=== PATIENT | female | born 1995 | race Caucasian/White ===

== ENCOUNTER 2017-03-09 08:19 | Emergency (ER) | payer OTHER ==
[~2017-03-09] VITALS: Ht 162.6 cm; Wt 72.5 kg
[~2017-03-09 08:19] MED LIST: ACET325T33 PO; NITR-58 PO; PREN-39 PO
[2017-03-09 08:21] VITALS: Ht 162.6 cm; Wt 72.5 kg
[2017-03-09 09:38] LABS: ADD UMIC YES; UR BILIRUBIN (Dip) NEGATIVE (NEGATIVE); UR BLOOD (Dip) 3+ (NEGATIVE); UR CLARITY CLEAR (CLEAR); UR COLOR YELLOW (YELLOW); UR GLUCOSE (Dip) NEGATIVE (NEGATIVE); UR KETONES (Dip) NEGATIVE (NEGATIVE); UR LEUKOCYTE ESTERASE (Dip) NEGATIVE (NEGATIVE); UR NITRITE (Dip) NEGATIVE (NEGATIVE); UR TOTAL PROTEIN (Dip) NEGATIVE (NEGATIVE); UR UROBILINOGEN (Dip) 0.2 E.U./dL (0.1-1.0)
[2017-03-09 09:52] LABS: UR SQUAMOUS EPITHELIAL CELL FEW
[2017-03-09 09:53] LABS: UR MUCUS FEW
[2017-03-09] MEDS ORDERED: ACET500C5 PO (10:29)
[2017-03-09 10:40] VITALS: BP 121/65; PULSE 77; RESP 18
--- NOTE | 2017-03-09 16:57 | ERD ---
ER Documentation Chief Complaint Date/Time DATE: 03/09/17 TIME: 16:53 Chief Complaint BACK PAIN , HX OF UTI HPI 21-year-old female patient with no significant past medical history presents to the ED complaining of bilateral flank pain that started 3 days ago. Reports that she is concerned about her kidneys. Reports that she does get recurrent urinary tract infections. States that her menses is irregular. Reports that she is not sexually active. Denies any dysuria, urgency, frequency, hematuria. Denies any abdominal pain, nausea, vomiting, chest pain, shortness of breath. ROS All systems reviewed and are negative except as per history of present illness. Medications Home Meds Active Scripts Acetaminophen* (Tylophen*) 500 Mg Capsule, 1 CAP PO Q6H Y for PAIN AND OR ELEVATED TEMP, #20 CAP Prov:MICHELLE BELTRAN PA-C 03/09/17 Acetaminophen* (Tylenol*) 325 Mg Tablet, 1 TAB PO Q6 Y for PAIN AND OR ELEVATED TEMP, #20 TAB Prov:SHUN TINEO NP 04/05/16 Nitrofurantoin Monohyd Macrocr* (Macrobid*) 100 Mg Capsr, 100 MG PO BID for 7 Days, CAP Prov:SHUN TINEO. FIRM ADMINISTRATOR 04/05/16 Reported Medications Vits W-Ca,Fe,Fa(<1MG) ( Vitamins) 1 Tab Tablet, 1 TAB PO 10/01/14 Allergies Allergies: Coded Allergies: No Known Allergy (Verified , 03/09/17) PMhx/Soc History of Surgery: No Anesthesia Reaction: No Hx Neurological Disorder: No Hx Respiratory Disorders: No Hx Cardiac Disorders: No Hx Psychiatric Problems: No Hx Miscellaneous Medical Probl: No Hx Alcohol Use: No Hx Substance Use: No Hx Tobacco Use: No Smoking Status: Never smoker Physical Exam Vitals Vital Signs Date Time Temp Pulse Resp B/P Pulse Ox O2 Delivery O2 Flow Rate FiO2 03/09/17 08:06 98.2 147 22 113/75 100 Physical Exam Const: [id number], well-nourished. In no acute distress. Head: Atraumatic, normocephalic Eyes: Normal Conjunctiva without injection. No purulent discharge. ENT: Normal external ear, nose. Moist oropharynx without tonsillar exudates. Non -erythematous pharynx. Uvula midline. No drooling. No trismus. Neck: No cervical midline tenderness. Full range of motion. No meningismus. No cervical lymphadenopathy. No JVD. Resp: Clear to auscultation bilaterally. No wheezing, rhonchi, rales, or crackles. No accessory muscle use. No retractions. Cardio: Regular rate and rhythm. No murmurs, rubs or gallops. Abd: Soft, nontender non distended. Normal bowel sounds. No palpable masses. No rebound tenderness. No guarding. Negative McBurney's point. Negative psoas sign. Negative obturator sign. Skin: No petechiae or rashes Back: No midline tenderness. Slight bilateral CVA tenderness. No tenderness to palpation of the muscular structures. Ext: No cyanosis, or edema. Neur: Awake and alert. Normal gait. Normal coordination. Psych: Normal Mood and Affect Results 24 hrs Laboratory Tests Test 03/09/17 09:12 Urine Color YELLOW Urine Clarity CLEAR Urine pH 6.0 Urine Specific [place] >=1.030 Urine Ketones NEGATIVE Urine Nitrite NEGATIVE Urine Bilirubin NEGATIVE Urine Urobilinogen 0.2 E.U./dL Urine Leukocyte Esterase NEGATIVE Urine Microscopic RBC 2-5/HPF Urine Microscopic WBC NONE SEEN/HPF Urine Squamous Epithelial Cells FEW Urine Mucus FEW Urine Hemoglobin 3+ Urine Glucose NEGATIVE% Urine Total Protein NEGATIVE Procedures/MDM This is a 21-year-old female patient with no significant past medical history presents the ED complaining of bilateral flank pain. Patient is afebrile and nontoxic-appearing. Patient has normal vital signs. A urinalysis and urine was ordered to further evaluate patient. Urinalysis showed 3+ hematuria likely secondary to patient's menstruation since she just ended 2 days ago. Differentials also include nephrolithiasis. No leukocyte esterase, nitrites noted. There is low suspicion for septic renal stone, pyelonephritis, urinary tract infection, appendicitis, cholecystitis, cholangitis, choledocholithiasis, or other emergent conditions. Discharge medications: Tylenol Follow up with primary care physician in 1-2 days. Instructed patient to return to the ED sooner for any worsening symptoms. Patient's questions were answered. Patient understood and agreed with discharge plan. Patient discharged stable. Departure Diagnosis: Primary Impression: Pain, flank, bilateral Condition: Stable Patient Instructions: Flank Pain, Uncertain Cause Referrals: [facility] YOU HAVE RECEIVED A MEDICAL SCREENING EXAM AND THE RESULTS INDICATE THAT YOU DO NOT HAVE A CONDITION THAT REQUIRES URGENT TREATMENT IN THE EMERGENCY DEPARTMENT. FURTHER EVALUATION AND TREATMENT OF YOUR CONDITION CAN WAIT UNTIL YOU ARE SEEN IN YOUR DOCTORS OFFICE WITHIN THE NEXT 1-2 DAYS. IT IS YOUR RESPONSIBILITY TO MAKE AN APPOINTMENT FOR FOLOW-UP CARE. IF YOU HAVE A PRIMARY DOCTOR --you should call your primary doctor and schedule an appointment IF YOU DO NOT HAVE A PRIMARY DOCTOR YOU CAN CALL OUR PHYSICIAN REFERRAL HOTLINE AT IF YOU CAN NOT AFFORD TO SEE A PHYSICIAN YOU CAN CHOSE FROM THE FOLLOWING [facility] [address] [facility]. [facility] [address] [facility]. [facility] [address] [facility] [facility] [address] [facility] [address] [facility]. [facility] [address] [facility]. [facility] YOU HAVE RECEIVED A MEDICAL SCREENING EXAM AND THE RESULTS INDICATE THAT YOU DO NOT HAVE A CONDITION THAT REQUIRES URGENT TREATMENT IN THE EMERGENCY DEPARTMENT. FURTHER EVALUATION AND TREATMENT OF YOUR CONDITION CAN WAIT UNTIL YOU ARE SEEN IN YOUR DOCTORS OFFICE WITHIN THE NEXT 1-2 DAYS. IT IS YOUR RESPONSIBILITY TO MAKE AN APPOINTMENT FOR FOLOW-UP CARE. IF YOU HAVE A PRIMARY DOCTOR --you should call your primary doctor and schedule and appointment IF YOU DO NOT HAVE A PRIMARY DOCTOR YOU CAN CALL OUR PHYSICIAN REFERRAL HOTLINE AT . IF YOU CAN NOT AFFORD TO SEE A PHYSICIAN YOU CAN CHOSE FROM THE FOLLOWING [facility] INSTITUTIONS: [facility] [address] [place] [address] [facility] [address] [place] [address] [facility] + [facility] [address] [place] [address] [facility] URGENT CARE/SPECIALTIES Additional Instructions: Call your primary care doctor TOMORROW for an appointment during the next 2-3 days.See the doctor sooner or return here if your condition worsens before your appointment time. MICHELLE BELTRAN PA-C Mar 09, 2017 16:56 MICHELLE BELTRAN PA-C Mar 09, 2017 16:56
== END 2017-03-09 10:40 | disposition home or self-care (01) ==
LOC: FTE 08:19
DX: R10.9 Unspecified abdominal pain (principal)
CPT/HCPCS: 81001; 99283

== ENCOUNTER 2017-07-23 09:10 | Emergency (ER) | payer OTHER ==
[~2017-07-23] VITALS: Ht 165.1 cm; Wt 74.0 kg
[~2017-07-23 09:10] MED LIST changes: +ACET500C5 PO
[2017-07-23 09:12] VITALS: Ht 165.1 cm; Wt 74.0 kg
[2017-07-23] MEDS ORDERED: LEVO5TAB28 PO (09:51)
[2017-07-23] MEDS ORDERED: PRED20TA PO (09:51)
--- NOTE | 2017-07-23 10:32 | ERD ---
ER Documentation Chief Complaint Chief Complaint HAS REDNESS AND SWELLING AROUND BOTH EYES HPI 21-year-old female complaining of erythema and irritation around bilateral eyes 1 month. Patient states she feels her skin is flaky and itchy. Denies discharge around the eyes or ocular pain. Has been using ointment around eyes. Has never had this before. ROS All systems reviewed and are negative except as per history of present illness. Medications Home Meds Active Scripts Levocetirizine Dihydrochloride (Xyzal) 5 Mg Tablet, 5 MG PO QPM, #30 TAB Prov:SAMUEL HAWTHORNE PA-C 07/23/17 Prednisone* (Prednisone*) 20 Mg Tab, 40 MG PO DAILY for 4 Days, TAB Prov:SAMUEL HAWTHORNE PA-C 07/23/17 Acetaminophen* (Tylophen*) 500 Mg Capsule, 1 CAP PO Q6H Y for PAIN AND OR ELEVATED TEMP, #20 CAP Prov:MICHELLE BELTRAN PA-C 03/09/17 Acetaminophen* (Tylenol*) 325 Mg Tablet, 1 TAB PO Q6 Y for PAIN AND OR ELEVATED TEMP, #20 TAB Prov:SHUN TINEO [employer] MAN 04/05/16 Nitrofurantoin Monohyd Macrocr* (Macrobid*) 100 Mg Capsr, 100 MG PO BID for 7 Days, CAP Prov:SHUN TINEO [employer] MAN 04/05/16 Reported Medications Vits W-Ca,Fe,Fa(<1MG) ( Vitamins) 1 Tab Tablet, 1 TAB PO 10/01/14 Allergies Allergies: Coded Allergies: No Known Allergy (Verified , 03/09/17) PMhx/Soc Medical and Surgical Hx: pt denies Medical Hx, pt denies Surgical Hx History of Surgery: No Anesthesia Reaction: No Hx Neurological Disorder: No Hx Respiratory Disorders: No Hx Cardiac Disorders: No Hx Psychiatric Problems: No Hx Miscellaneous Medical Probl: No Hx Alcohol Use: No Hx Substance Use: No Hx Tobacco Use: No Smoking Status: Never smoker Physical Exam Vitals Vital Signs Date Time Temp Pulse Resp B/P Pulse Ox O2 Delivery O2 Flow Rate FiO2 07/23/17 09:12 98.4 89 18 138/64 98 Physical Exam GENERAL: The patient is well-appearing, well-nourished, in no acute distress HEENT: Atraumatic. Conjunctivae are pink. Pupils equal, round, and reactive to light. There is no scleral icterus. Tympanic membranes clear bilaterally. Oropharynx clear. CHEST: Clear to auscultation bilaterally. There are no rales, wheezes or rhonchi. HEART: Regular rate and rhythm. No murmurs, clicks, rubs or gallops. No S3 or S4. SKIN: Erythema and scaling around bilateral eyes. No induration. No fluctuance. No streaking. No purulence. No vesicles. Procedures/MDM MDM: 21 yr old female complaining about erythema and scaling around bilateral eyes. Patient appears to have contact dermatitis. I have low suspicion for bacterial fungal infection. I have low suspicion for periorbital orbital cellulitis. I have low suspicion for ocular infection. I have low suspicion for parasitic infection. Patient will be treated with medication and recommended to follow-up with primary care within 1-2 days for close evaluation. Patient is discharged with strict ER precautions. All questions answered discharge. Departure Diagnosis: Primary Impression: Contact dermatitis Condition: Stable Patient Instructions: Contact Dermatitis Additional Instructions: FOLLOW UP WITH YOUR PRIMARY CARE PHYSICIAN TOMORROW.Return to this facility if you are not improving as expected. SAMUEL HAWTHORNE PA-C Jul 23, 2017 10:32
== END 2017-07-23 10:16 | disposition home or self-care (01) ==
LOC: FTE 09:10
DX: L25.9 Unspecified contact dermatitis, unspecified cause (principal)
CPT/HCPCS: 99284

== ENCOUNTER 2018-08-07 18:53 | Emergency (ER) | END 2018-08-07 21:00 | disposition home or self-care (01) ==

== ENCOUNTER 2019-05-13 14:56 | Emergency (ER) | payer OTHER ==
[~2019-05-13] VITALS: Ht 160 cm; Wt 78.5 kg
[~2019-05-13 14:56] MED LIST changes: +FAMO40TA5 PO; +IBUP-1542 PO; +LEVO5TAB28 PO; +PRED20TA PO; +UDMYL PO
[2019-05-13 15:01] VITALS: BP 150/76; PULSE 82; RESP 18; Ht 160 cm; Wt 78.5 kg
[2019-05-13] MEDS ORDERED: KETOROLAC 30 MG INJ IV STA (16:12)
[2019-05-13] MEDS ORDERED: DIPHENHYDRAMINE 50 MG INJ IV STA (16:12)
[2019-05-13] MEDS ORDERED: SOD CHLORIDE 0.9% 1,000 ML IV STA (16:12)
[2019-05-13] MEDS ORDERED: PROCHLORPERAZINE 10 MG INJ IV STA (16:12)
--- NOTE | 2019-05-13 17:04 | ERD ---
ER Documentation Chief Complaint Chief Complaint peraza x 1 month intermittent. dizziness and lightheadedness HPI This is a 23-year-old female with history of migraine headaches presents to the ED complaining of intermittent headache x1 month. She reports "throbbing "headaches that started on the left side and migrate to the right side of her parietal scalp. She states her migraines last for about 1 week then self resolve. She has been taking Excedrin at home with temporary relief of her symptoms. She states her headaches today are very similar to her previous headaches but more frequent. She reports some associated photophobia but no phonophobia, nausea, vomiting. No focal weakness. No neck stiffness/pain. No fevers or chills. No dizziness or vertigo. She says she has been stressed over the past 1 month. ROS All systems reviewed and are negative except as per history of present illness. Medications Home Meds Active Scripts Ibuprofen* (Motrin*) 600 Mg Tab, 600 MG PO Q6H PRN for PAIN AND OR ELEVATED TEMP, #30 TAB Prov:RAGHAV GLOVER PA-C 05/13/19 Magaldrate/Simethicone* (Mag-Al Plus Suspension*) 30 Ml Oral.susp, 30 ML PO Q6H PRN for GASTROINTESTINAL UPSET for 5 Days, ML Prov:INDIRA LUZ PA-C 08/07/18 Famotidine* (Famotidine*) 40 Mg Tablet, 40 MG PO BID, #30 TAB Prov:INDIRA LUZ PA-C 08/07/18 Levocetirizine Dihydrochloride (Xyzal) 5 Mg Tablet, 5 MG PO QPM, #30 TAB Prov:SAMUEL HAWTHORNE PA-C 07/23/17 Prednisone* (Prednisone*) 20 Mg Tab, 40 MG PO DAILY for 4 Days, TAB Prov:SAMUEL HAWTHORNE PA-C 07/23/17 Acetaminophen* (Tylophen*) 500 Mg Capsule, 1 CAP PO Q6H PRN for PAIN AND OR ELEVATED TEMP, #20 CAP Prov:MICHELLE BELTRAN PA-C 03/09/17 Acetaminophen* (Tylenol*) 325 Mg Tablet, 1 TAB PO Q6 PRN for PAIN AND OR ELEVATED TEMP, #20 TAB Prov:SHUN TINEO NP 04/05/16 Nitrofurantoin Monohyd Macrocr* (Macrobid*) 100 Mg Capsr, 100 MG PO BID for 7 Days, CAP Prov:RIVKA,SHUNARUN Howard NP 04/05/16 Reported Medications Vits W-Ca,Fe,Fa(<1MG) ( Vitamins) 1 Tab Tablet, 1 TAB PO 10/01/14 Allergies Allergies: Coded Allergies: No Known Allergy (Verified , 03/09/17) PMhx/Soc History of Surgery: No Anesthesia Reaction: No Hx Neurological Disorder: Yes (migraines) Hx Respiratory Disorders: No Hx Cardiac Disorders: No Hx Psychiatric Problems: No Hx Miscellaneous Medical Probl: No Hx Alcohol Use: No Hx Substance Use: No Hx Tobacco Use: No Smoking Status: Unknown if ever smoked Physical Exam Vitals Vital Signs Date Temp Pulse Resp B/P (MAP) Pulse Ox O2 O2 Flow FiO2 Time Delivery Rate 05/13/19 99.2 82 18 150/76 97 15:01 (100) Physical Exam Const: No acute distress Head: Atraumatic Eyes: Normal Conjunctiva ENT: Normal External Ears, Nose and Mouth. Neck: Full range of motion. No meningismus. Resp: Clear to auscultation bilaterally Cardio: Regular rate and rhythm, no murmurs Abd: Soft, non tender, non distended. Normal bowel sounds Skin: No petechiae or rashes Back: No midline or flank tenderness Ext: No cyanosis, or edema Neuro: M/S: Alert and oriented Face: EOMI, face and pharynx with normal sensation and function Motor: Normal strength throughout Sensation: Normal sensation throughout Speech: Normal Cerebel: Normal coordination Normal gait Psych: Normal Mood and Affect Results 24 hrs Laboratory Tests Test 05/13/19 16:26 05/13/19 16:27 POC Beta HCG, Qualitative NEGATIVE Bedside Urine pH (LAB) 7.5 Bedside Urine Protein (LAB) Negative Bedside Urine Glucose (UA) Negative Bedside Urine Ketones (LAB) Negative Bedside Urine Blood 3+ Bedside Urine Nitrite (LAB) Negative Bedside Urine Leukocyte Esterase (L Negative Current Medications Medications Dose Sig/Jaspreet Start Time Status Last (Trade) Ordered Route PRN Stop Time Admin Dose Reason Admin Sodium 1,000 ml @ Q1H STAT 05/13/19 05/13/19 Chloride 1,000 mls/hr IV 16:12 05/13/19 16:26 17:11 10 mg ONCE STAT 05/13/19 DC 05/13/19 Prochlorperaz IV 16:12 05/13/19 16:25 ine 16:16 (Compazine Inj) Ketorolac 30 mg ONCE STAT 05/13/19 DC 05/13/19 Tromethamine IV 16:12 05/13/19 16:26 (Toradol) 16:16 25 mg ONCE STAT 05/13/19 DC Diphenhydrami IV 16:12 05/13/19 ne HCl 16:26 (Benadryl) Procedures/MDM ED COURSE: The patient was given IV fluids, Compazine, Toradol The medication was well tolerated and the patient had market improvement in symptoms. The patient remained stable throughout ED course. MEDICAL DECISION MAKIN-year-old female with history of migraine headaches presents with exacerbation of her headaches, likely stress induced. History and physical most consistent with primary headache. I do not think she requires advanced imaging at this time. Vital signs are stable. No focal neurological deficits on physical exam. Clinical presentation not consistent with subarachnoid hemorrhage, epidural or subdural hematoma, IC mass, CVA, encephalitis or meningitis. Much better after IV fluids and medications. Patient was discharge home with close follow up and management by PCP in 48 hours. Strict return precautions discussed. PRESCRIPTIONS: Ibuprofen SPECIALIST FOLLOW UP RECOMMENDED: None Patient has been advised to follow up with primary care in 1-2 days. Departure Diagnosis: Primary Impression: Migraine headache Migraine type: without aura Status migrainosus presence: without status migrainosus Intractability: not intractable Qualified Codes: G43.009 - Migraine without aura, not intractable, without status migrainosus Condition: Stable Patient Instructions: Migraines and Cluster Headaches Referrals: [facility] YOU HAVE RECEIVED A MEDICAL SCREENING EXAM AND THE RESULTS INDICATE THAT YOU DO NOT HAVE A CONDITION THAT REQUIRES URGENT TREATMENT IN THE EMERGENCY DEPARTMENT. FURTHER EVALUATION AND TREATMENT OF YOUR CONDITION CAN WAIT UNTIL YOU ARE SEEN IN YOUR DOCTORS OFFICE WITHIN THE NEXT 1-2 DAYS. IT IS YOUR RESPONSIBILITY TO MAKE AN APPOINTMENT FOR FOLOW-UP CARE. IF YOU HAVE A PRIMARY DOCTOR --you should call your primary doctor and schedule an appointment IF YOU DO NOT HAVE A PRIMARY DOCTOR YOU CAN CALL OUR PHYSICIAN REFERRAL HOTLINE AT IF YOU CAN NOT AFFORD TO SEE A PHYSICIAN YOU CAN CHOSE FROM THE FOLLOWING [facility] [address] [facility] [address] [facility] [address] [facility] [address] [facility] [address] [facility]. [facility] [address] [facility]. [facility] YOU HAVE RECEIVED A MEDICAL SCREENING EXAM AND THE RESULTS INDICATE THAT YOU DO NOT HAVE A CONDITION THAT REQUIRES URGENT TREATMENT IN THE EMERGENCY DEPARTMENT. FURTHER EVALUATION AND TREATMENT OF YOUR CONDITION CAN WAIT UNTIL YOU ARE SEEN IN YOUR DOCTORS OFFICE WITHIN THE NEXT 1-2 DAYS. IT IS YOUR RESPONSIBILITY TO MAKE AN APPOINTMENT FOR FOLOW-UP CARE. IF YOU HAVE A PRIMARY DOCTOR --you should call your primary doctor and schedule and appointment IF YOU DO NOT HAVE A PRIMARY DOCTOR YOU CAN CALL OUR PHYSICIAN REFERRAL HOTLINE AT . IF YOU CAN NOT AFFORD TO SEE A PHYSICIAN YOU CAN CHOSE FROM THE FOLLOWING [facility] INSTITUTIONS: [facility] [address] [place] [address] [facility] [address] [place] [address] [facility] + [facility] [address] [place] [address] Additional Instructions: Call your primary care doctor TOMORROW for an appointment during the next 2-4 days and bring all the information and medications prescribed. If the symptoms get worse and your provider is unavailable, return to the Emergency Department immediately. RAGHAV GLOVER PA-C May 13, 2019 17:04
== END 2019-05-13 17:06 | disposition home or self-care (01) ==
LOC: FTE 14:56
DX: G43.009 Migraine without aura, not intractable, without status migrainosus (principal)
CPT/HCPCS: 36415; 81003; 81025; 96374; 96375; J0780; J1885; J7030; Z7502; J1200